=== PATIENT | female | born 1995 | race Caucasian/White ===

== ENCOUNTER 2018-05-11 06:14 | Day surgery (SDC) | payer MEDICAID ==
[~2018-05-11] VITALS: Ht 160 cm; Wt 114.3 kg
--- NOTE | ~2018-05-11 | OP ---
PATIENT NAME: LUTHER HAINES MEDICAL RECORD: [id number] :97 LOCATION:[facility] ADMISSION DATE: SURGEON: GREGOR MARTINEZ MD DATE OF OPERATION: 05/11/2018 PREOPERATIVE DIAGNOSES: 1. Biliary dyskinesia. 2. Asthma. 3. Gastroesophageal reflux disease. 4. Morbid obesity with a BMI of 44. POSTOPERATIVE DIAGNOSES: 1. Biliary dyskinesia. 2. Asthma. 3. Gastroesophageal reflux disease. 4. Morbid obesity with a BMI of 44. PROCEDURE: Laparoscopic cholecystectomy. SURGEON: Gregor Martinez MD REPORT OF PROCEDURE: The patient's abdomen was prepped and draped in sterile fashion. A cutdown was made on the superior aspect of the umbilicus, 0 Vicryls were placed on the fascia bilaterally and the fascia was incised with 15-blade. I then bluntly entered the peritoneal cavity and placed a 12-mm Yessi port. Under direct visualization, a 5-mm trocar was placed in the epigastrium and 2 more 5-mm trocars were placed in the right subcostal region. The gallbladder was grasped and elevated. There is only some minimal chronic inflammatory changes present and these were teased down carefully with blunt dissection. The cystic artery and cystic duct were dissected free and these were clipped proximally and distally and ligated in standard fashion. The gallbladder was taken off the liver bed using electrocautery and placed in the right upper quadrant. Any bleeding from the liver bed was then treated with electrocautery. We irrigated out the right upper quadrant and assured there was no sign of any bleeding or bile leakage. At this point, the ports and insufflation were then removed and the gallbladder was taken out through the umbilicus. The umbilical fascia was closed with interrupted 0 Vicryls times 3. The wounds were then irrigated out with normal saline, infused with 10 mL of 0.25% Marcaine with epinephrine. The skin incisions were all closed with subcutaneous 5-0 Monocryl and dressed appropriately. COMPLICATIONS: None. CONDITION: Stable. ANESTHESIA: General endotracheal and local. BLOOD LOSS: Minimal. TRANSINT:[id number] Voice Confirmation ID: [id number] DOCUMENT ID: [id number] OPERATIVE REPORT [id number] LUTHER HAINES GREGOR MARTINEZ MD at 1219 CC: Shabana GARCIA NATHAN A DO [id number] DICTATION DATE: 05/11/18 1033 DIETETIC AIDE: 05/11/18 1044 [facility] 05/11/18 [id number] [place] [address]
[~2018-05-11 06:14] MED LIST: HCTZ25 MG PO; LUNESTA2 M1 PO; PROTONIX40 MG PO; TENORMIN50 MG PO; ZOLOFT50 MG PO; ZYRTEC10 MG PO
[2018-05-11 06:33] LABS: BASOPHILS 0.3 % (0-2); EOSINOPHILS 3.7 % (0-7); HEMATOCRIT 40.6 % (36.0-48.0); HEMOGLOBIN 13.5 g/dL (12-16); IMMATURE GRANULOCYTES 0.7 % (0-5); LYMPHOCYTES 25.6 % (15-50); MCH 30.3 pg (26.0-34.0); MCHC 33.3 g/dL (31.0-37.0); MEAN PLATELET VOLUME 9.8 fL (7.4-10.4); MONOCYTES 7.6 % (2-11); NEUTROPHILS 62.1 % (40-80); PLATELET COUNT 215 10x3/uL (130-400); RBC 4.46 10x6/uL (4.00-5.40); RDW 12.7 % (11.5-14.5); WBC 6.7 10x3/uL (4.8-10.8)
[2018-05-11 06:45] LABS: CALC OSMOLALITY 276 mosm/kg (275-300); CALCIUM 8.6 mg/dL (8.5-10.1); CARBON DIOXIDE 26.4 mmol/L (21.0-32.0); CHLORIDE - SERUM 106 mmol/L (98-107); CREATININE - SERUM 0.8 mg/dL (0.6-1.3); GLUCOSE 94 mg/dL (74-106); SODIUM 139 mmol/L (136-145); UREA NITROGEN 9 mg/dL (7-18); eGFR NON AFRICAN AMERICAN > 90 mL/min (90-120)
[2018-05-11 07:39] VITALS: BP 121/72; Ht 160 cm; Wt 114.3 kg
[2018-05-11 08:54] LABS: HCG URINE NEGATIVE (NEGATIVE)
[2018-05-11] MEDS ORDERED: NORCO 10-325 TA1 TAB PO (10:29)
== END 2018-05-11 13:15 | disposition home or self-care (01) ==
LOC: D.OPS 06:14 → D.PAN 08:00 → D.OPS 08:15
PROVIDERS: Surgery
DX: K82.8 Other specified diseases of gallbladder (principal); J45.909 Unspecified asthma, uncomplicated; K21.9 Gastro-esophageal reflux disease without esophagitis; E66.01 Morbid (severe) obesity due to excess calories; Z68.41 Body mass index [BMI] 40.0-44.9, adult; Z01.812 Encounter for preprocedural laboratory examination